=== PATIENT | male | born 1935 | race Hispanic/Latino ===

== ENCOUNTER → 2017-01-24 | Day surgery (SDC) | payer MEDICARE ==
[~2017-01-24] MED LIST: FURO20TA4 PO; HYDR-4068 PO; SPIR25TA4 PO; URSO300C4 PO
[2017-01-24 09:58] LABS: INR 1.02 (0.85-1.15); PROTHROMBIN TIME 10.7 SEC (9.6-11.6)
== END ==
LOC: DAH 08:34
PROVIDERS: ATTEND Internal Medicine Hematology & Oncology
DX: Z45.2 Encounter for adjustment and management of vascular access device (principal)
CPT/HCPCS: 36415; 36569; 71010; 76937; 85610; A4606; C1894